=== PATIENT | female | born 1940 | race Caucasian/White ===

== ENCOUNTER 2017-04-25 22:05 | Observation (INO) | payer OTHER ==
[~2017-04-25] VITALS: Ht 162.6 cm; Wt 96.5 kg
[2017-04-25 23:01] LABS: BASOPHIL (%) 0.2 % (0-1); EOSINOPHIL (%) 0.8 % (0-5); EOSINOPHIL COUNT 0.1 K/uL (0-0.3); HEMATOCRIT 26.7 % (36.0-46.0); HEMOGLOBIN 8.8 G/DL (11.9-15.5); IMMATURE GRANULOCYTE (%) 0.7 % (0.0-0.7); LYMPHOCYTE (%) 7.1 % (15-42); LYMPHOCYTE COUNT 0.8 K/uL (1.0-2.8); MCH 33.8 PG (29.0-34.0); MCV 102.7 FL (83-99); MONOCYTE (%) 5.6 % (3-12); MONOCYTE COUNT 0.6 K/uL (0-0.8); NEUTROPHIL (%) 85.6 % (45-76); NEUTROPHIL COUNT 9.1 K/uL (1.8-6.4); PLATELET COUNT 149 K/uL (156-360); RBC DIS.WIDTH-CV 13.5 % (11.8-14.6); RBC DIS.WIDTH-SD 49.9 % (39-53); WHITE BLOOD COUNT 10.6 K/uL (4.1-10.2)
[2017-04-25 23:09] LABS: INTER. NORMALIZED RATIO 1.1
[2017-04-25 23:11] LABS: PTT 25.8 SEC (25-37)
[2017-04-25 23:14] LABS: ALBUMIN 3.3 g/dL (3.2-4.8); CHLORIDE 106 mEq/L (99-109); SODIUM 139 mEq/L (136-147)
[2017-04-25 23:15] LABS: MAGNESIUM 1.6 mg/dL (1.3-2.7)
[2017-04-25 23:16] LABS: GLUCOSE 210 mg/dL (70-99); TOTAL PROTEIN 6.7 g/dL (6.4-8.3)
[2017-04-25 23:18] LABS: TOTAL BILIRUBIN 0.6 mg/dL (0.0-1.0)
[2017-04-25 23:20] LABS: ALKALINE PHOSPHATASE 106 IU/L (3-129); CREATININE 1.9 mg/dL (0.6-1.3); GFR ESTIMATE (CALCULATED) 27 mL/min/
[2017-04-25 23:21] LABS: UREA NITROGEN (BUN) 29 mg/dL (9-23)
[2017-04-25 23:22] LABS: AST (GOT) 35 IU/L (2-34)
[2017-04-25 23:23] LABS: ALT (GPT) 24 IU/L (3-49); CREATINE KINASE 277 IU/L (1-294); TOTAL CK 277 IU/L (1-294)
[2017-04-25 23:29] LABS: CK-MB 4.3 ng/mL (0.0-4.9); CKMB RELATIVE INDEX 1.6 (0.0-3.9)
[2017-04-25 23:30] LABS: TROP-I INTERPRETATION NEGATIVE; TROPONIN-I 0.01 ng/mL (0.0-0.30)
[2017-04-26] VITALS (10 sets, daily range): BP systolic 117–154; BP diastolic 55–77
[2017-04-26 01:59] LABS: APPEARANCE SL.HAZY ((CLEAR)); BILIRUBIN NEGATIVE; BLOOD NEGATIVE; COLOR YELLOW ((YELLOW)); GLUCOSE (STRIP) 50; KETONES NEGATIVE; LEUKOCYTES LARGE; NITRITE NEGATIVE; PROTEIN (STRIP) 30; SPECIFIC GRAVITY 1.018 (1.000-1.030); UROBILINOGEN 0.2 MG/DL (0.2-1.0)
[2017-04-26 02:39] LABS: BACTERIA 2+ /HPF; EPITHELIAL CELLS RARE /HPF; HYALINE CASTS 0-5 /LPF; MUCUS TRACE /LPF; UCUL ADDED? YES; WHITE BLOOD CELLS TNTC /HPF (0-5)
[2017-04-26 03:27] LABS: HEMATOCRIT 23.9 % (36.0-46.0); HEMOGLOBIN 7.8 G/DL (11.9-15.5); MCV 102.6 FL (83-99)
[2017-04-26] MEDS ORDERED: LEVOTHYROXINE137 MCG PO (05:47)
[2017-04-26] MEDS ORDERED: DUONEB 2.5-0.5 M3 ML AEROSOL (05:48)
[2017-04-26] MEDS ORDERED: DONEPEZIL HCL10 MG PO (05:48)
[2017-04-26] MEDS ORDERED: GABAPENTIN300 MG PO (05:48)
[2017-04-26] MEDS ORDERED: OXYCODONE-APAP1 EAC6 PO (05:48)
[2017-04-26] MEDS ORDERED: ASPIR-TRIN325 M1 PO (05:50)
[2017-04-26] MEDS ORDERED: CLOPIDOGREL75 MG PO (05:50)
[2017-04-26 08:09] LABS: SERUM ETHYL ALCOHOL < 10 mg/dL
[2017-04-26 09:05] LABS: HEMOGLOBIN 7.2 G/DL (11.9-15.5); MCH 34.1 PG (29.0-34.0); MCHC 32.7 G/DL (30.0-36.0); MCV 104.3 FL (83-99); PLATELET COUNT 124 K/uL (156-360); RBC DIS.WIDTH-CV 13.7 % (11.8-14.6); RED BLOOD COUNT 2.11 M/uL (3.80-5.20); WHITE BLOOD COUNT 6.7 K/uL (4.1-10.2)
[2017-04-26 09:41] LABS: CHLORIDE 108 MEQ/L (99-109); CREATININE 1.8 MG/DL (0.6-1.3); GFR ESTIMATE (CALCULATED) 29 mL/min/; GLUCOSE 148 mg/dL (70-99); POTASSIUM 4.7 MEQ/L (3.7-5.4); SODIUM 141 MEQ/L (136-147); UREA NITROGEN (BUN) 27 mg/dL (9-23)
[2017-04-26 18:50] LABS: BASOPHIL (%) 0.2 % (0-1); EOSINOPHIL (%) 0.8 % (0-5); EOSINOPHIL COUNT 0.1 K/uL (0-0.3); HEMATOCRIT 31.2 % (36.0-46.0); IMMATURE GRANULOCYTE (%) 0.6 % (0.0-0.7); LYMPHOCYTE (%) 14.1 % (15-42); LYMPHOCYTE COUNT 1.2 K/uL (1.0-2.8); MCH 31.9 PG (29.0-34.0); MCHC 32.4 G/DL (30.0-36.0); MONOCYTE (%) 9.9 % (3-12); MONOCYTE COUNT 0.9 K/uL (0-0.8); NEUTROPHIL (%) 74.4 % (45-76); NEUTROPHIL COUNT 6.4 K/uL (1.8-6.4); PLATELET COUNT 123 K/uL (156-360); RBC DIS.WIDTH-CV 16.9 % (11.8-14.6); RBC DIS.WIDTH-SD 60.3 % (39-53); WHITE BLOOD COUNT 8.6 K/uL (4.1-10.2)
[2017-04-26 18:51] LABS: HEMOGLOBIN 10.1 G/DL (11.9-15.5); MCV 98.4 FL (83-99); RED BLOOD COUNT 3.17 M/uL (3.80-5.20)
[2017-04-27 03:16] VITALS: BP 144/63
[2017-04-27 05:31] LABS: BASOPHIL (%) 0.2 % (0-1); EOSINOPHIL (%) 2.2 % (0-5); EOSINOPHIL COUNT 0.1 K/uL (0-0.3); HEMATOCRIT 28.6 % (36.0-46.0); HEMOGLOBIN 9.5 G/DL (11.9-15.5); IMMATURE GRANULOCYTE (%) 0.8 % (0.0-0.7); LYMPHOCYTE (%) 14.1 % (15-42); LYMPHOCYTE COUNT 0.9 K/uL (1.0-2.8); MCH 32.5 PG (29.0-34.0); MCHC 33.2 G/DL (30.0-36.0); MCV 97.9 FL (83-99); MONOCYTE (%) 11.3 % (3-12); MONOCYTE COUNT 0.7 K/uL (0-0.8); NEUTROPHIL (%) 71.4 % (45-76); NEUTROPHIL COUNT 4.6 K/uL (1.8-6.4); PLATELET COUNT 114 K/uL (156-360); RBC DIS.WIDTH-CV 17.4 % (11.8-14.6); RBC DIS.WIDTH-SD 61.8 % (39-53); RED BLOOD COUNT 2.92 M/uL (3.80-5.20); WHITE BLOOD COUNT 6.4 K/uL (4.1-10.2)
[2017-04-27 05:57] LABS: CHLORIDE 106 MEQ/L (99-109); GFR ESTIMATE (CALCULATED) 26 mL/min/; GLUCOSE 176 mg/dL (70-99); POTASSIUM 4.1 MEQ/L (3.7-5.4); SODIUM 142 MEQ/L (136-147); UREA NITROGEN (BUN) 28 mg/dL (9-23)
[2017-04-27 08:35] VITALS: BP 115/55
[2017-04-27] MEDS ORDERED: NIZORAL 2% CREA15 GM TP (09:04)
[2017-04-27] MEDS ORDERED: CIPRO500 MG PO (09:04)
[2017-04-27] MEDS ORDERED: Ocean Nasal 0.65% BOTH NARES (09:07)
== END 2017-04-27 11:03 | disposition home or self-care (01) ==
LOC: EME → EDBD 22:05 → EDOF 04-26 05:11 → 5WEST 04-26 05:11 → EDOF 04-26 05:11 → ENRESERV 04-26 05:14 → 5WEST 04-26 06:04 → ENPENDDIS 04-27 09:15 → 5WEST 04-27 11:03
PROVIDERS: Emergency Medicine; Hospitalist; Physician Assistant Medical
PROC: 30233N1 Transfusion of Nonautologous Red Blood Cells into Peripheral Vein, Percutaneous Approach (ICD-10-PCS; principal; 2017-04-26)
PROC: 095M8ZZ Destruction of Nasal Septum, Via Natural or Artificial Opening Endoscopic (ICD-10-PCS; 2017-04-26)
DX: R04.0 Epistaxis (principal); D62 Acute posthemorrhagic anemia; D63.1 Anemia in chronic kidney disease; R55 Syncope and collapse; N30.00 Acute cystitis without hematuria; I12.9 Hypertensive chronic kidney disease with stage 1 through stage 4 chronic kidney disease, or unspecified chronic kidney disease; N18.3 Chronic kidney disease, stage 3 (moderate); E11.22 Type 2 diabetes mellitus with diabetic chronic kidney disease; E03.9 Hypothyroidism, unspecified; S00.03XA Contusion of scalp, initial encounter; W19.XXXA Unspecified fall, initial encounter; R29.6 Repeated falls; R26.9 Unspecified abnormalities of gait and mobility; J34.2 Deviated nasal septum; L92.8 Other granulomatous disorders of the skin and subcutaneous tissue; I25.10 Atherosclerotic heart disease of native coronary artery without angina pectoris; I25.2 Old myocardial infarction; Z86.73 Personal history of transient ischemic attack (TIA), and cerebral infarction without residual deficits; I95.9 Hypotension, unspecified; E86.0 Dehydration; E78.5 Hyperlipidemia, unspecified; J44.9 Chronic obstructive pulmonary disease, unspecified; Z85.828 Personal history of other malignant neoplasm of skin; M81.0 Age-related osteoporosis without current pathological fracture; M96.1 Postlaminectomy syndrome, not elsewhere classified; G89.29 Other chronic pain; E21.3 Hyperparathyroidism, unspecified; Z90.710 Acquired absence of both cervix and uterus; Z60.2 Problems related to living alone; Z77.22 Contact with and (suspected) exposure to environmental tobacco smoke (acute) (chronic); Z82.49 Family history of ischemic heart disease and other diseases of the circulatory system; Z83.3 Family history of diabetes mellitus; Z79.82 Long term (current) use of aspirin; Z79.02 Long term (current) use of antithrombotics/antiplatelets; Z79.891 Long term (current) use of opiate analgesic; S51.011A Laceration without foreign body of right elbow, initial encounter; R09.02 Hypoxemia
CPT/HCPCS: 70450; 71010; 80048; 80053; 80306 90; 81003; 82550; 82553; 82948; 83735; 84484; 85014; 85018; 85025; 85027; 85610; 85730; 86850; 86900; 86901; 86920; 87077; 87086; 87186; 87641; 93005; 94640; 94640 76; 99202; 99281; 99285; G0378; G0480; G8978 GP CI; G8979 GP CH; G8987 GO CI; G8988 GO CH; G8989 GO CI; J0696; J1815; J1940; J7030; J7040; P9016

== ENCOUNTER 2017-07-13 20:04 | Inpatient (IN) | payer OTHER ==
[~2017-07-13] VITALS: Ht 162.6 cm; Wt 97.8 kg
[~2017-07-13 20:04] MED LIST: ASPIR-TRIN325 M1 PO; CIPRO500 MG PO; CLOPIDOGREL75 MG PO; DONEPEZIL HCL10 MG PO; DUONEB 2.5-0.5 M3 ML AEROSOL; GABAPENTIN300 MG PO; LEVOTHYROXINE137 MCG PO; NIZORAL 2% CREA15 GM TP; OXYCODONE-APAP1 EAC6 PO; Ocean Nasal 0.65% BOTH NARES
[2017-07-13 21:16] LABS: HEMATOCRIT 38.9 % (36.0-46.0); HEMOGLOBIN 12.9 G/DL (11.9-15.5); MCHC 33.2 G/DL (30.0-36.0); MCV 96.5 FL (83-99); PLATELET COUNT 130 K/uL (156-360); RBC DIS.WIDTH-CV 13.4 % (11.8-14.6); RBC DIS.WIDTH-SD 47.9 % (39-53); RED BLOOD COUNT 4.03 M/uL (3.80-5.20); WHITE BLOOD COUNT 10.5 K/uL (4.1-10.2)
[2017-07-13 21:30] LABS: CHLORIDE 105 mEq/L (99-109); POTASSIUM 4.6 mEq/L (3.7-5.4); SODIUM 138 mEq/L (136-147)
[2017-07-13 21:32] LABS: GLUCOSE 252 mg/dL (70-99)
[2017-07-13 21:36] LABS: GFR ESTIMATE (CALCULATED) 26 mL/min/
[2017-07-13 21:37] LABS: UREA NITROGEN (BUN) 52 mg/dL (9-23)
[2017-07-13 21:50] LABS: TROP-I INTERPRETATION NEGATIVE; TROPONIN-I 0.02 ng/mL (0.0-0.30)
[2017-07-13] MEDS ORDERED: PERCOCET 7.51 TABLET PO (22:44)
[2017-07-13] MEDS ORDERED: NIZORAL 2% CREA15 GM TP (22:46)
[2017-07-13] MEDS ORDERED: MIRALAX17 GM PO (22:47)
[2017-07-13] MEDS ORDERED: SIMVASTATIN40 MG PO (22:47)
[2017-07-13] MEDS ORDERED: ASPIR 8181 M1 PO (22:47)
[2017-07-13] MEDS ORDERED: PROAIR HFA8.5 GM IH (22:47)
[2017-07-13] MEDS ORDERED: OCEAN NASAL 0.645 ML BOTH NARES (22:47)
[2017-07-13] MEDS ORDERED: AMITRIPTYLINE H25 MG PO (22:47)
[2017-07-13] MEDS ORDERED: PROTONIX20 MG PO (22:48)
[2017-07-13] MEDS ORDERED: MOBIC7.5 MG PO (22:48)
[2017-07-13] MEDS ORDERED: ANORO ELLIPTA1 EACH IH (22:48)
[2017-07-13] MEDS ORDERED: HUMULIN 70100 UNIT/3 SC (22:48)
[2017-07-14] VITALS (7 sets, daily range): BP systolic 117–174; BP diastolic 58–82
[2017-07-14 11:39] LABS: TROP-I INTERPRETATION NEGATIVE; TROPONIN-I 0.01 ng/mL (0.0-0.30)
[2017-07-15] VITALS (7 sets, daily range): BP systolic 112–152; BP diastolic 53–70
[2017-07-15 08:54] LABS: HEMATOCRIT 37.1 % (36.0-46.0); HEMOGLOBIN 12.1 G/DL (11.9-15.5); MCH 31.3 PG (29.0-34.0); MCHC 32.6 G/DL (30.0-36.0); MCV 96.1 FL (83-99); PLATELET COUNT 123 K/uL (156-360); RBC DIS.WIDTH-CV 13.3 % (11.8-14.6); RBC DIS.WIDTH-SD 47.3 % (39-53); RED BLOOD COUNT 3.86 M/uL (3.80-5.20); WHITE BLOOD COUNT 11.9 K/uL (4.1-10.2)
[2017-07-15 09:16] LABS: CHLORIDE 101 MEQ/L (99-109); CREATININE 1.7 MG/DL (0.6-1.3); GFR ESTIMATE (CALCULATED) 31 mL/min/; GLUCOSE 303 mg/dL (70-99); POTASSIUM 4.5 MEQ/L (3.7-5.4); SODIUM 135 MEQ/L (136-147); UREA NITROGEN (BUN) 47 mg/dL (9-23)
[2017-07-16 03:58] VITALS: BP 132/62
[2017-07-16 07:29] VITALS: BP 150/71
[2017-07-16 12:21] VITALS: BP 145/65
[2017-07-16] MEDS ORDERED: PREDNISONE20 MG PO (15:31)
[2017-07-16] MEDS ORDERED: DULERA 100 MCG/13 GM IH (15:31)
== END 2017-07-16 18:51 | disposition home or self-care (01) | DRG 192 ==
LOC: EME 20:04 → EDOF 23:24 → 5WEST 23:24 → ENRESERV 23:25 → 5WEST 07-14 00:45
PROVIDERS: Hospitalist
DX: J44.1 Chronic obstructive pulmonary disease with (acute) exacerbation (principal); J44.0 Chronic obstructive pulmonary disease with (acute) lower respiratory infection; J20.9 Acute bronchitis, unspecified; E03.9 Hypothyroidism, unspecified; E11.40 Type 2 diabetes mellitus with diabetic neuropathy, unspecified; E11.65 Type 2 diabetes mellitus with hyperglycemia; G89.4 Chronic pain syndrome; I13.10 Hypertensive heart and chronic kidney disease without heart failure, with stage 1 through stage 4 chronic kidney disease, or unspecified chronic kidney disease; N18.3 Chronic kidney disease, stage 3 (moderate); E11.22 Type 2 diabetes mellitus with diabetic chronic kidney disease; D69.6 Thrombocytopenia, unspecified; I25.10 Atherosclerotic heart disease of native coronary artery without angina pectoris; K21.9 Gastro-esophageal reflux disease without esophagitis; M81.0 Age-related osteoporosis without current pathological fracture; M96.1 Postlaminectomy syndrome, not elsewhere classified; R29.6 Repeated falls; E21.3 Hyperparathyroidism, unspecified; E78.5 Hyperlipidemia, unspecified; F41.9 Anxiety disorder, unspecified; Z86.73 Personal history of transient ischemic attack (TIA), and cerebral infarction without residual deficits; R00.0 Tachycardia, unspecified; R26.9 Unspecified abnormalities of gait and mobility; M62.81 Muscle weakness (generalized); G89.29 Other chronic pain; F32.9 Major depressive disorder, single episode, unspecified; I25.2 Old myocardial infarction; E66.9 Obesity, unspecified; Z68.35 Body mass index [BMI] 35.0-35.9, adult; Z77.22 Contact with and (suspected) exposure to environmental tobacco smoke (acute) (chronic); Z79.4 Long term (current) use of insulin; Z79.82 Long term (current) use of aspirin; Z82.49 Family history of ischemic heart disease and other diseases of the circulatory system; Z83.3 Family history of diabetes mellitus; Z85.828 Personal history of other malignant neoplasm of skin
CPT/HCPCS: 71046; 71250; 78582; 80048; 82948; 83880; 84484; 85027; 85379; 93005; 93306; 93970; 94640; 94640 76; 94760; 99202; 99281; 99285; A9539; A9540; G0378; J0360; J1100; J1644; J1815; J7030; J7512; J7644

== ENCOUNTER 2017-07-21 23:03 | Inpatient (IN) | payer OTHER ==
[~2017-07-21] VITALS: Ht 162.6 cm; Wt 95.7 kg
[~2017-07-21 23:03] MED LIST changes: +AMITRIPTYLINE H25 MG PO; +ANORO ELLIPTA1 EACH IH; +ASPIR 8181 M1 PO; +DULERA 100 MCG/13 GM IH; +HUMULIN 70100 UNIT/3 SC; +MIRALAX17 GM PO; +MOBIC7.5 MG PO; +OCEAN NASAL 0.645 ML BOTH NARES; +PERCOCET 7.51 TABLET PO; +PREDNISONE20 MG PO; +PROAIR HFA8.5 GM IH; +PROTONIX20 MG PO; +SIMVASTATIN40 MG PO
[2017-07-21 23:56] LABS: HEMATOCRIT 39.4 % (36.0-46.0); HEMOGLOBIN 13.1 G/DL (11.9-15.5); MCH 32.3 PG (29.0-34.0); MCHC 33.2 G/DL (30.0-36.0); PLATELET COUNT 128 K/uL (156-360); RBC DIS.WIDTH-CV 13.6 % (11.8-14.6); RBC DIS.WIDTH-SD 48.4 % (39-53); RED BLOOD COUNT 4.06 M/uL (3.80-5.20); WHITE BLOOD COUNT 8.6 K/uL (4.1-10.2)
[2017-07-22 00:04] LABS: CHLORIDE 107 mEq/L (99-109); POTASSIUM 4.3 mEq/L (3.7-5.4); SODIUM 141 mEq/L (136-147)
[2017-07-22 00:05] LABS: GLUCOSE 205 mg/dL (70-99)
[2017-07-22 00:09] LABS: CREATININE 1.9 mg/dL (0.6-1.3); GFR ESTIMATE (CALCULATED) 27 mL/min/; PTT 22.7 SEC (25-37)
[2017-07-22 00:10] LABS: UREA NITROGEN (BUN) 38 mg/dL (9-23)
[2017-07-22 00:18] LABS: TROP-I INTERPRETATION NEGATIVE; TROPONIN-I 0.03 ng/mL (0.0-0.30)
[2017-07-22 00:46] LABS: APPEARANCE CLOUDY ((CLEAR)); BILIRUBIN NEGATIVE; BLOOD MODERATE; COLOR YELLOW ((YELLOW)); GLUCOSE (STRIP) NEGATIVE; KETONES NEGATIVE; LEUKOCYTES LARGE; NITRITE POSITIVE; PROTEIN (STRIP) 30; SPECIFIC GRAVITY 1.019 (1.000-1.030); UROBILINOGEN 0.2 MG/DL (0.2-1.0)
[2017-07-22 01:34] LABS: EPITHELIAL CELLS 1+ /HPF
[2017-07-22 01:35] LABS: MUCUS 1+ /LPF; UCUL ADDED? YES; WHITE BLOOD CELLS 40-50 /HPF (0-5)
[2017-07-22 01:36] LABS: AMORPHOUS URATES CRYSTALS 1+; BACTERIA 3+ /HPF
[2017-07-22 10:57] LABS: TROP-I INTERPRETATION NEGATIVE; TROPONIN-I 0.02 ng/mL (0.0-0.30)
[2017-07-22 12:12] VITALS: BP 134/75
[2017-07-22 13:00] LABS: GLUCOSE 673 mg/dL (70-99)
[2017-07-22] MEDS ORDERED: MULTIVITAMIN1 EAC2 PO (13:47)
[2017-07-22] MEDS ORDERED: IRON325 M1 PO (13:48)
[2017-07-22 16:10] LABS: TROP-I INTERPRETATION NEGATIVE; TROPONIN-I 0.02 ng/mL (0.0-0.30)
[2017-07-22 16:37] VITALS: BP 135/66
[2017-07-22 17:01] LABS: CHLORIDE 99 MEQ/L (99-109)
[2017-07-22 17:03] LABS: POTASSIUM 5.2 MEQ/L (3.7-5.4); SODIUM 131 MEQ/L (136-147)
[2017-07-22 17:18] LABS: CREATININE 2.2 MG/DL (0.6-1.3); GFR ESTIMATE (CALCULATED) 23 mL/min/; UREA NITROGEN (BUN) 49 mg/dL (9-23)
[2017-07-22 17:19] LABS: GLUCOSE 583 mg/dL (70-99)
[2017-07-22 18:24] LABS: TROP-I INTERPRETATION NEGATIVE; TROPONIN-I 0.03 ng/mL (0.0-0.30)
[2017-07-22 18:29] LABS: CHLORIDE 98 MEQ/L (99-109); POTASSIUM 5.3 MEQ/L (3.7-5.4); SODIUM 131 MEQ/L (136-147)
[2017-07-22 18:30] LABS: BASE EXCESS -4.4 mEq/L (-3 to +3); BICARBONATE 20.1 mEq/L (22-26); CARBOXY HGB 1.6 % (0-5); COMMENTS - BLOOD GASES A+C+; FI02 21 %; METHEMOGLOBIN 0.8 % (0-1.5); PCO2 34 mm Hg (35-45); PO2 81 mm Hg (80-100); SITE RR; pH 7.38 (7.35-7.45)
[2017-07-22 18:46] LABS: CREATININE 2.2 MG/DL (0.6-1.3); GFR ESTIMATE (CALCULATED) 23 mL/min/; GLUCOSE 552 mg/dL (70-99); UREA NITROGEN (BUN) 48 mg/dL (9-23)
[2017-07-22 19:26] VITALS: BP 134/62
[2017-07-22 23:24] VITALS: BP 97/61
[2017-07-23 02:40] VITALS: BP 93/57
[2017-07-23 07:18] LABS: BASOPHIL (%) 0.1 % (0-1); EOSINOPHIL (%) 0.1 % (0-5); HEMATOCRIT 32.8 % (36.0-46.0); IMMATURE GRANULOCYTE (%) 0.8 % (0.0-0.7); LYMPHOCYTE COUNT 0.3 K/uL (1.0-2.8); MCH 32.5 PG (29.0-34.0); MCHC 33.5 G/DL (30.0-36.0); MONOCYTE (%) 2.5 % (3-12); MONOCYTE COUNT 0.4 K/uL (0-0.8); NEUTROPHIL (%) 94.5 % (45-76); NEUTROPHIL COUNT 13.5 K/uL (1.8-6.4); PLATELET COUNT 92 K/uL (156-360); RBC DIS.WIDTH-CV 13.4 % (11.8-14.6); RBC DIS.WIDTH-SD 47.4 % (39-53); RED BLOOD COUNT 3.38 M/uL (3.80-5.20); WHITE BLOOD COUNT 14.3 K/uL (4.1-10.2)
[2017-07-23 07:39] LABS: ALKALINE PHOSPHATASE 54 IU/L (3-129); ALT (GPT) 23 IU/L (3-49); AST (GOT) 17 IU/L (2-34); CHLORIDE 104 MEQ/L (99-109); CREATININE 1.8 MG/DL (0.6-1.3); GFR ESTIMATE (CALCULATED) 29 mL/min/; POTASSIUM 4.6 MEQ/L (3.7-5.4); SODIUM 136 MEQ/L (136-147); TOTAL BILIRUBIN 0.4 MG/DL (0.0-1.0); TOTAL PROTEIN 5.3 G/DL (6.4-8.3); UREA NITROGEN (BUN) 48 mg/dL (9-23)
[2017-07-23 07:40] LABS: GLUCOSE 192 mg/dL (70-99)
[2017-07-23 08:29] VITALS: BP 135/66; BP 156/68
[2017-07-23 11:52] LABS: HEMOGLOBIN A1c (GLYCOHEMOGLOB) 8.8 % (Below 5.7)
[2017-07-23 12:00] VITALS: BP 137/62
[2017-07-23 15:52] VITALS: BP 140/66
[2017-07-23 19:15] VITALS: BP 170/80
[2017-07-24] VITALS (7 sets, daily range): BP systolic 109–155; BP diastolic 62–92
[2017-07-24 06:12] LABS: BASOPHIL (%) 0.1 % (0-1); EOSINOPHIL (%) 0 % (0-5); HEMATOCRIT 32.7 % (36.0-46.0); HEMOGLOBIN 10.7 G/DL (11.9-15.5); IMMATURE GRANULOCYTE (%) 0.6 % (0.0-0.7); LYMPHOCYTE (%) 1.7 % (15-42); LYMPHOCYTE COUNT 0.2 K/uL (1.0-2.8); MCH 32.3 PG (29.0-34.0); MCHC 32.7 G/DL (30.0-36.0); MCV 98.8 FL (83-99); MONOCYTE (%) 2.6 % (3-12); MONOCYTE COUNT 0.3 K/uL (0-0.8); NEUTROPHIL COUNT 12.6 K/uL (1.8-6.4); PLATELET COUNT 93 K/uL (156-360); RBC DIS.WIDTH-CV 13.7 % (11.8-14.6); RBC DIS.WIDTH-SD 49.6 % (39-53); RED BLOOD COUNT 3.31 M/uL (3.80-5.20); WHITE BLOOD COUNT 13.3 K/uL (4.1-10.2)
[2017-07-24 06:35] LABS: ALBUMIN 2.7 G/DL (3.2-4.8); ALKALINE PHOSPHATASE 48 IU/L (3-129); ALT (GPT) 25 IU/L (3-49); CHLORIDE 110 MEQ/L (99-109); CREATININE 1.7 MG/DL (0.6-1.3); GFR ESTIMATE (CALCULATED) 31 mL/min/; GLUCOSE 160 mg/dL (70-99); POTASSIUM 4.9 MEQ/L (3.7-5.4); SODIUM 138 MEQ/L (136-147); TOTAL PROTEIN 4.9 G/DL (6.4-8.3); UREA NITROGEN (BUN) 46 mg/dL (9-23)
[2017-07-24 06:47] LABS: AST (GOT) 26 IU/L (2-34); TOTAL BILIRUBIN 0.3 MG/DL (0.0-1.0)
[2017-07-24 12:18] LABS: APPEARANCE CLEAR ((CLEAR)); BILIRUBIN NEGATIVE; BLOOD MODERATE; COLOR STRAW ((YELLOW)); GLUCOSE (STRIP) >=500; KETONES NEGATIVE; LEUKOCYTES NEGATIVE; NITRITE NEGATIVE; PROTEIN (STRIP) NEGATIVE; SPECIFIC GRAVITY 1.013 (1.000-1.030); UROBILINOGEN 0.2 MG/DL (0.2-1.0)
[2017-07-24 12:34] LABS: BACTERIA RARE /HPF; EPITHELIAL CELLS NONE SEEN /HPF; HYALINE CASTS 0-5 /LPF; MUCUS TRACE /LPF; RED BLOOD CELLS 0-5 /HPF (0-5); WHITE BLOOD CELLS 0-5 /HPF (0-5)
[2017-07-25 03:21] VITALS: BP 170/80
[2017-07-25 06:14] LABS: BASOPHIL (%) 0.1 % (0-1); EOSINOPHIL (%) 0 % (0-5); HEMATOCRIT 32.1 % (36.0-46.0); HEMOGLOBIN 10.4 G/DL (11.9-15.5); IMMATURE GRANULOCYTE (%) 1.1 % (0.0-0.7); LYMPHOCYTE (%) 2.9 % (15-42); LYMPHOCYTE COUNT 0.3 K/uL (1.0-2.8); MCH 31.5 PG (29.0-34.0); MCHC 32.4 G/DL (30.0-36.0); MCV 97.3 FL (83-99); MONOCYTE COUNT 0.5 K/uL (0-0.8); NEUTROPHIL (%) 90.9 % (45-76); NEUTROPHIL COUNT 9.3 K/uL (1.8-6.4); PLATELET COUNT 96 K/uL (156-360); RBC DIS.WIDTH-CV 13.9 % (11.8-14.6); RBC DIS.WIDTH-SD 49.5 % (39-53); WHITE BLOOD COUNT 10.2 K/uL (4.1-10.2)
[2017-07-25 06:38] LABS: ALBUMIN 2.9 G/DL (3.2-4.8); ALKALINE PHOSPHATASE 50 IU/L (3-129); ALT (GPT) 31 IU/L (3-49); AST (GOT) 40 IU/L (2-34); CHLORIDE 109 MEQ/L (99-109); CREATININE 1.7 MG/DL (0.6-1.3); GFR ESTIMATE (CALCULATED) 31 mL/min/; GLUCOSE 123 mg/dL (70-99); POTASSIUM 4.7 MEQ/L (3.7-5.4); SODIUM 137 MEQ/L (136-147); TOTAL BILIRUBIN 0.3 MG/DL (0.0-1.0); TOTAL PROTEIN 5.3 G/DL (6.4-8.3); UREA NITROGEN (BUN) 42 mg/dL (9-23)
[2017-07-25 07:30] VITALS: BP 158/75
[2017-07-25 11:21] VITALS: BP 147/73
[2017-07-25 15:51] VITALS: BP 181/77
[2017-07-25 19:41] VITALS: BP 169/80
[2017-07-25 23:36] VITALS: BP 145/63
[2017-07-26 03:51] VITALS: BP 140/69
[2017-07-26 06:28] LABS: BASOPHIL (%) 0.3 % (0-1); EOSINOPHIL (%) 0.6 % (0-5); HEMATOCRIT 32.9 % (36.0-46.0); HEMOGLOBIN 10.9 G/DL (11.9-15.5); IMMATURE GRANULOCYTE (%) 1.8 % (0.0-0.7); LYMPHOCYTE (%) 9.9 % (15-42); LYMPHOCYTE COUNT 0.7 K/uL (1.0-2.8); MCH 32.5 PG (29.0-34.0); MCHC 33.1 G/DL (30.0-36.0); MCV 98.2 FL (83-99); MONOCYTE (%) 10.6 % (3-12); MONOCYTE COUNT 0.8 K/uL (0-0.8); NEUTROPHIL (%) 76.8 % (45-76); NEUTROPHIL COUNT 5.6 K/uL (1.8-6.4); PLATELET COUNT 86 K/uL (156-360); RBC DIS.WIDTH-CV 14.3 % (11.8-14.6); RBC DIS.WIDTH-SD 51.8 % (39-53); RED BLOOD COUNT 3.35 M/uL (3.80-5.20); WHITE BLOOD COUNT 7.3 K/uL (4.1-10.2)
[2017-07-26 07:32] LABS: CHLORIDE 108 MEQ/L (99-109); CREATININE 1.6 MG/DL (0.6-1.3); GFR ESTIMATE (CALCULATED) 33 mL/min/; GLUCOSE 96 mg/dL (70-99); POTASSIUM 4.5 MEQ/L (3.7-5.4); SODIUM 138 MEQ/L (136-147); UREA NITROGEN (BUN) 38 mg/dL (9-23)
[2017-07-26 07:40] VITALS: BP 141/77
[2017-07-26 11:41] VITALS: BP 161/67
[2017-07-26 16:00] VITALS: BP 138/65
[2017-07-26 18:47] VITALS: BP 121/66; BP 121/71
[2017-07-26 23:18] VITALS: BP 151/84
[2017-07-27 03:24] VITALS: BP 139/66
[2017-07-27 06:41] LABS: BASOPHIL (%) 0.5 % (0-1); EOSINOPHIL (%) 0.6 % (0-5); HEMATOCRIT 31.7 % (36.0-46.0); HEMOGLOBIN 10.5 G/DL (11.9-15.5); IMMATURE GRANULOCYTE (%) 3.1 % (0.0-0.7); LYMPHOCYTE (%) 15.3 % (15-42); LYMPHOCYTE COUNT 0.9 K/uL (1.0-2.8); MCH 32.6 PG (29.0-34.0); MCHC 33.1 G/DL (30.0-36.0); MCV 98.4 FL (83-99); MONOCYTE (%) 11.2 % (3-12); MONOCYTE COUNT 0.7 K/uL (0-0.8); NEUTROPHIL (%) 69.3 % (45-76); NEUTROPHIL COUNT 4.3 K/uL (1.8-6.4); PLATELET COUNT 84 K/uL (156-360); RBC DIS.WIDTH-CV 14.2 % (11.8-14.6); RBC DIS.WIDTH-SD 50.6 % (39-53); RED BLOOD COUNT 3.22 M/uL (3.80-5.20); WHITE BLOOD COUNT 6.2 K/uL (4.1-10.2)
[2017-07-27 06:58] LABS: CHLORIDE 106 MEQ/L (99-109); CREATININE 1.8 MG/DL (0.6-1.3); GFR ESTIMATE (CALCULATED) 29 mL/min/; GLUCOSE 98 mg/dL (70-99); POTASSIUM 4.4 MEQ/L (3.7-5.4); SODIUM 138 MEQ/L (136-147); UREA NITROGEN (BUN) 45 mg/dL (9-23)
[2017-07-27 10:02] VITALS: BP 143/66
[2017-07-27 11:26] VITALS: BP 137/60
[2017-07-27 15:50] VITALS: BP 136/68
[2017-07-27 19:46] VITALS: BP 148/66
[2017-07-27 23:54] VITALS: BP 136/60
[2017-07-28 04:26] VITALS: BP 167/72
[2017-07-28 07:20] VITALS: BP 124/75
[2017-07-28] MEDS ORDERED: LEVEMIR100 UNIT/2 SC (11:29)
[2017-07-28] MEDS ORDERED: DOXYCYCLINE HY100 M3 PO (11:43)
[2017-07-28] MEDS ORDERED: BENZONATATE100 MG PO (11:48)
[2017-07-28] MEDS ORDERED: DULERA 100 MCG/13 GM IH (11:56)
[2017-07-28] MEDS ORDERED: NOVOLOG 10100 UNITS/ SC (11:56)
[2017-07-28] MEDS ORDERED: PREDNISONE20 MG PO (11:56)
[2017-08-01] MEDS ORDERED: LANTUS 3 M100 UNITS1 SC (14:30)
== END 2017-07-28 14:42 | disposition home health service (06) | DRG 191 ==
LOC: EME 23:03 → EDOF 07-22 07:43 → 5EAST 07-22 07:43 → ENRESERV 07-22 07:44 → EDOF 07-22 07:47 → ENRESERV 07-22 09:41 → 5EAST 07-22 10:25 → ENRESERV 07-22 17:30 → CANRESERV 07-22 17:30 → 5EAST 07-22 17:31
PROVIDERS: Emergency Medicine; Hospitalist
DX: J44.1 Chronic obstructive pulmonary disease with (acute) exacerbation (principal); N30.00 Acute cystitis without hematuria; K21.9 Gastro-esophageal reflux disease without esophagitis; N18.3 Chronic kidney disease, stage 3 (moderate); D69.6 Thrombocytopenia, unspecified; E03.9 Hypothyroidism, unspecified; E11.22 Type 2 diabetes mellitus with diabetic chronic kidney disease; E11.40 Type 2 diabetes mellitus with diabetic neuropathy, unspecified; E21.3 Hyperparathyroidism, unspecified; E78.5 Hyperlipidemia, unspecified; G89.4 Chronic pain syndrome; I13.10 Hypertensive heart and chronic kidney disease without heart failure, with stage 1 through stage 4 chronic kidney disease, or unspecified chronic kidney disease; I25.10 Atherosclerotic heart disease of native coronary artery without angina pectoris; M81.0 Age-related osteoporosis without current pathological fracture; J98.01 Acute bronchospasm; Z77.22 Contact with and (suspected) exposure to environmental tobacco smoke (acute) (chronic); I25.2 Old myocardial infarction; Z90.710 Acquired absence of both cervix and uterus; Z86.73 Personal history of transient ischemic attack (TIA), and cerebral infarction without residual deficits; Z90.49 Acquired absence of other specified parts of digestive tract; Z85.828 Personal history of other malignant neoplasm of skin; Z79.51 Long term (current) use of inhaled steroids; Z82.49 Family history of ischemic heart disease and other diseases of the circulatory system
CPT/HCPCS: 36600; 71046; 80048; 80048 91; 80053; 81003; 82010; 82803; 82948; 83036; 83605; 83880; 84484; 84999; 85025; 85027; 85610; 85730; 87040; 87077; 87086; 87186; 87449; 87502; 93005; 94640; 94640 76; 94644; 94760; 99202; 99281; 99285; J0456; J0692; J1644; J1815; J2920; J2930; J3370; J7030; J7050; J7512

== ENCOUNTER 2017-08-02 06:58 | Day surgery (SDC) | payer OTHER ==
[~2017-08-02] VITALS: Ht 162.6 cm; Wt 95.7 kg
[~2017-08-02 06:58] MED LIST changes: +BENZONATATE100 MG PO; +DOXYCYCLINE HY100 M3 PO; +IRON325 M1 PO; +LANTUS 3 M100 UNITS1 SC; +LEVEMIR100 UNIT/2 SC; +MULTIVITAMIN1 EAC2 PO; +NOVOLOG 10100 UNITS/ SC
[2017-08-02 11:57] LABS: CHLORIDE 109 MEQ/L (99-109); CREATININE 1.4 MG/DL (0.6-1.3); GFR ESTIMATE (CALCULATED) 39 mL/min/; GLUCOSE 59 mg/dL (70-99); POTASSIUM 3.8 MEQ/L (3.7-5.4); SODIUM 139 MEQ/L (136-147); UREA NITROGEN (BUN) 38 mg/dL (9-23)
[2017-08-02] MEDS ORDERED: PULMICORT FLE180 MCG IH (15:04)
== END 2017-08-02 15:58 | disposition home or self-care (01) ==
LOC: CATH 06:58
PROVIDERS: Internal Medicine Cardiovascular Disease
DX: I25.10 Atherosclerotic heart disease of native coronary artery without angina pectoris (principal); R06.02 Shortness of breath; J44.9 Chronic obstructive pulmonary disease, unspecified; E78.5 Hyperlipidemia, unspecified; E11.42 Type 2 diabetes mellitus with diabetic polyneuropathy; Z79.4 Long term (current) use of insulin; Z86.73 Personal history of transient ischemic attack (TIA), and cerebral infarction without residual deficits; I12.9 Hypertensive chronic kidney disease with stage 1 through stage 4 chronic kidney disease, or unspecified chronic kidney disease; N18.9 Chronic kidney disease, unspecified; E11.22 Type 2 diabetes mellitus with diabetic chronic kidney disease; M81.0 Age-related osteoporosis without current pathological fracture; Z86.19 Personal history of other infectious and parasitic diseases; G89.4 Chronic pain syndrome; R26.89 Other abnormalities of gait and mobility
CPT/HCPCS: 80048; 82948; C1769; C1887; J0360; J1644; J2250; J7040

== ENCOUNTER 2017-08-11 09:39 | Inpatient (IN) | payer OTHER ==
[~2017-08-11] VITALS: Ht 162.6 cm; Wt 82.7 kg
[~2017-08-11 09:39] MED LIST changes: +PULMICORT FLE180 MCG IH
[2017-08-11 10:48] LABS: HEMATOCRIT 35.4 % (36.0-46.0); MCH 33.2 PG (29.0-34.0); MCHC 33.9 G/DL (30.0-36.0); MCV 98.1 FL (83-99); PLATELET COUNT 96 K/uL (156-360); RBC DIS.WIDTH-CV 13.6 % (11.8-14.6); RBC DIS.WIDTH-SD 49.1 % (39-53); RED BLOOD COUNT 3.61 M/uL (3.80-5.20); WHITE BLOOD COUNT 8.1 K/uL (4.1-10.2)
[2017-08-11 11:00] LABS: CHLORIDE 103 mEq/L (99-109); POTASSIUM 4.9 mEq/L (3.7-5.4); SODIUM 140 mEq/L (136-147)
[2017-08-11 11:02] LABS: GLUCOSE 304 mg/dL (70-99)
[2017-08-11 11:05] LABS: CREATININE 1.6 mg/dL (0.6-1.3); GFR ESTIMATE (CALCULATED) 33 mL/min/
[2017-08-11 11:06] LABS: UREA NITROGEN (BUN) 28 mg/dL (9-23)
[2017-08-11 11:08] LABS: CREATINE KINASE 104 IU/L (1-294); TOTAL CK 104 IU/L (1-294)
[2017-08-11 11:14] LABS: TROP-I INTERPRETATION NEGATIVE; TROPONIN-I 0.25 ng/mL (0.0-0.30)
[2017-08-11 11:15] LABS: CK-MB 9.2 ng/mL (0.0-4.9); CKMB RELATIVE INDEX 8.8 (0.0-3.9)
[2017-08-11 12:52] LABS: PTT 18.3 SEC (25-37)
[2017-08-11 13:08] LABS: APPEARANCE SL.HAZY ((CLEAR)); BILIRUBIN NEGATIVE; BLOOD SMALL; COLOR YELLOW ((YELLOW)); GLUCOSE (STRIP) >=500; KETONES 5; LEUKOCYTES TRACE; NITRITE NEGATIVE; PROTEIN (STRIP) 100; SPECIFIC GRAVITY 1.017 (1.000-1.030); UROBILINOGEN 0.2 MG/DL (0.2-1.0)
[2017-08-11 13:16] LABS: BACTERIA 1+ /HPF; EPITHELIAL CELLS NONE SEEN /HPF; MUCUS NONE SEEN /LPF; RED BLOOD CELLS TNTC /HPF (0-5); WHITE BLOOD CELLS 20-30 /HPF (0-5)
[2017-08-11 16:08] VITALS: BP 111/56
[2017-08-11] MEDS ORDERED: TRELEGY ELLIPT1 EACH IH (17:26)
[2017-08-11 18:17] LABS: TROPONIN-I 0.73 ng/mL (0.0-0.30)
[2017-08-11 18:18] LABS: TROP-I INTERPRETATION POSITIVE
[2017-08-11 19:08] VITALS: BP 150/65; BP 171/77
[2017-08-11 20:27] VITALS: BP 136/67
[2017-08-11 23:35] VITALS: BP 113/54
[2017-08-12 03:21] VITALS: BP 125/58
[2017-08-12 03:27] LABS: HEMATOCRIT 29.4 % (36.0-46.0); MCH 32.8 PG (29.0-34.0); MCV 99.3 FL (83-99); PLATELET COUNT 89 K/uL (156-360); RBC DIS.WIDTH-CV 14.5 % (11.8-14.6); RBC DIS.WIDTH-SD 51.9 % (39-53); RED BLOOD COUNT 2.96 M/uL (3.80-5.20)
[2017-08-12 03:28] LABS: HEMOGLOBIN 9.7 G/DL (11.9-15.5)
[2017-08-12 03:34] LABS: CHLORIDE 108 mEq/L (99-109); POTASSIUM 4.3 mEq/L (3.7-5.4); SODIUM 142 mEq/L (136-147)
[2017-08-12 03:36] LABS: GLUCOSE 222 mg/dL (70-99)
[2017-08-12 03:40] LABS: CREATININE 1.8 mg/dL (0.6-1.3); GFR ESTIMATE (CALCULATED) 29 mL/min/
[2017-08-12 03:41] LABS: UREA NITROGEN (BUN) 31 mg/dL (9-23)
[2017-08-12 03:44] LABS: TROP-I INTERPRETATION INDETERMINATE; TROPONIN-I 0.57 ng/mL (0.0-0.30)
[2017-08-12 08:50] VITALS: BP 118/62
[2017-08-12] MEDS ORDERED: ATIVAN0.5 MG PO (11:24)
[2017-08-12] MEDS ORDERED: LANTUS 3 M100 UNITS1 SC (11:27)
[2017-08-12] MEDS ORDERED: HUMALOG100 UNIT/2 SC (11:28)
[2017-08-12] MEDS ORDERED: TRELEGY ELLIPT1 EACH IH (11:28)
[2017-08-12 12:11] VITALS: BP 106/78
[2017-08-12 16:38] VITALS: BP 141/61
[2017-08-12 20:14] VITALS: BP 146/74
[2017-08-12 23:52] VITALS: BP 151/64
[2017-08-13 05:21] VITALS: BP 124/58
[2017-08-13 08:30] VITALS: BP 134/75
[2017-08-13 09:19] LABS: HEMATOCRIT 29.9 % (36.0-46.0); HEMOGLOBIN 9.9 G/DL (11.9-15.5); MCH 33.2 PG (29.0-34.0); MCHC 33.1 G/DL (30.0-36.0); MCV 100.3 FL (83-99); PLATELET COUNT 78 K/uL (156-360); RBC DIS.WIDTH-CV 14.5 % (11.8-14.6); RBC DIS.WIDTH-SD 53.2 % (39-53); RED BLOOD COUNT 2.98 M/uL (3.80-5.20); WHITE BLOOD COUNT 3.3 K/uL (4.1-10.2)
[2017-08-13 09:41] LABS: CHLORIDE 106 MEQ/L (99-109); CREATININE 1.6 MG/DL (0.6-1.3); GFR ESTIMATE (CALCULATED) 33 mL/min/; GLUCOSE 186 mg/dL (70-99); SODIUM 136 MEQ/L (136-147); UREA NITROGEN (BUN) 23 mg/dL (9-23)
[2017-08-13 12:08] VITALS: BP 148/67
[2017-08-13 15:50] VITALS: BP 146/67
[2017-08-13 19:05] VITALS: BP 158/69
[2017-08-13 23:40] VITALS: BP 138/65
[2017-08-14 03:35] VITALS: BP 130/62
[2017-08-14 06:14] LABS: BASOPHIL (%) 0.3 % (0-1); EOSINOPHIL (%) 1.5 % (0-5); EOSINOPHIL COUNT 0.1 K/uL (0-0.3); HEMATOCRIT 27.7 % (36.0-46.0); HEMOGLOBIN 9.1 G/DL (11.9-15.5); IMMATURE GRANULOCYTE (%) 2.4 % (0.0-0.7); LYMPHOCYTE COUNT 0.6 K/uL (1.0-2.8); MCH 32.7 PG (29.0-34.0); MCHC 32.9 G/DL (30.0-36.0); MCV 99.6 FL (83-99); MONOCYTE (%) 14.9 % (3-12); MONOCYTE COUNT 0.5 K/uL (0-0.8); NEUTROPHIL (%) 61.9 % (45-76); NEUTROPHIL COUNT 2.1 K/uL (1.8-6.4); PLATELET COUNT 70 K/uL (156-360); RBC DIS.WIDTH-CV 14.5 % (11.8-14.6); RBC DIS.WIDTH-SD 52.8 % (39-53); RED BLOOD COUNT 2.78 M/uL (3.80-5.20); WHITE BLOOD COUNT 3.4 K/uL (4.1-10.2)
[2017-08-14 06:40] LABS: CHLORIDE 108 MEQ/L (99-109); CREATININE 1.8 MG/DL (0.6-1.3); GFR ESTIMATE (CALCULATED) 29 mL/min/; GLUCOSE 153 mg/dL (70-99); POTASSIUM 3.9 MEQ/L (3.7-5.4); SODIUM 138 MEQ/L (136-147); UREA NITROGEN (BUN) 22 mg/dL (9-23)
[2017-08-14 08:11] VITALS: BP 144/70
[2017-08-14 11:37] VITALS: BP 151/64
[2017-08-14 15:59] VITALS: BP 140/68
[2017-08-14 20:21] VITALS: BP 171/79
[2017-08-14 22:40] LABS: GLUCOSE 426 mg/dL (70-99)
[2017-08-14 23:10] VITALS: BP 173/79
[2017-08-15 03:30] VITALS: BP 173/74
[2017-08-15 06:11] LABS: HEMATOCRIT 29.1 % (36.0-46.0); HEMOGLOBIN 9.9 G/DL (11.9-15.5); MCH 32.6 PG (29.0-34.0); MCV 95.7 FL (83-99); PLATELET COUNT 78 K/uL (156-360); RBC DIS.WIDTH-CV 13.5 % (11.8-14.6); RBC DIS.WIDTH-SD 46.9 % (39-53); RED BLOOD COUNT 3.04 M/uL (3.80-5.20); WHITE BLOOD COUNT 5.9 K/uL (4.1-10.2)
[2017-08-15 06:31] LABS: CHLORIDE 107 MEQ/L (99-109); CREATININE 1.6 MG/DL (0.6-1.3); GFR ESTIMATE (CALCULATED) 33 mL/min/; GLUCOSE 285 mg/dL (70-99); POTASSIUM 4.3 MEQ/L (3.7-5.4); SODIUM 135 MEQ/L (136-147); UREA NITROGEN (BUN) 27 mg/dL (9-23)
[2017-08-15 09:00] VITALS: BP 144/66
[2017-08-15] MEDS ORDERED: FERROUS SULFAT325 MG PO (12:40)
[2017-08-15] MEDS ORDERED: LOPRESSOR25 MG PO (12:40)
[2017-08-15] MEDS ORDERED: PREDNISONE20 MG PO (12:40)
[2017-08-15] MEDS ORDERED: LANTUS 3 M100 UNITS1 SC (12:40)
== END 2017-08-15 14:50 | disposition home health service (06) | DRG 192 ==
LOC: EME 09:39 → EDOF 13:57 → 2EAST 13:57 → ENRESERV 14:00 → EDOF 14:03 → ENRESERV 14:34 → 2EAST 16:27 → ENRESERV 18:35 → 2EAST 18:38 → ENRESERV 21:40 → 4EAST 23:33 → ENRESERV 08-13 08:53 → 2EAST 08-13 11:32
PROVIDERS: Emergency Medicine; Hospitalist
DX: J44.1 Chronic obstructive pulmonary disease with (acute) exacerbation (principal); E11.649 Type 2 diabetes mellitus with hypoglycemia without coma; R55 Syncope and collapse; E11.22 Type 2 diabetes mellitus with diabetic chronic kidney disease; I25.10 Atherosclerotic heart disease of native coronary artery without angina pectoris; I13.10 Hypertensive heart and chronic kidney disease without heart failure, with stage 1 through stage 4 chronic kidney disease, or unspecified chronic kidney disease; N18.3 Chronic kidney disease, stage 3 (moderate); D69.6 Thrombocytopenia, unspecified; E78.5 Hyperlipidemia, unspecified; E03.9 Hypothyroidism, unspecified; M81.0 Age-related osteoporosis without current pathological fracture; D64.9 Anemia, unspecified; K21.9 Gastro-esophageal reflux disease without esophagitis; R29.6 Repeated falls; R74.8 Abnormal levels of other serum enzymes; Z86.73 Personal history of transient ischemic attack (TIA), and cerebral infarction without residual deficits; Z90.49 Acquired absence of other specified parts of digestive tract; Z79.4 Long term (current) use of insulin; Z90.710 Acquired absence of both cervix and uterus; Z85.828 Personal history of other malignant neoplasm of skin; I25.2 Old myocardial infarction
CPT/HCPCS: 70450; 71045; 80048; 81003; 82550; 82553; 82948; 83880; 84484; 84999; 85025; 85027; 85610; 85730; 87040; 87086; 93005; 93880; 94640; 94640 76; 97530 GO; 99202; 99281; 99285; J0696; J1644; J1650; J1815; J2930; J7030

== ENCOUNTER 2017-09-17 19:26 | Inpatient (IN) | payer OTHER ==
[~2017-09-17] VITALS: Ht 162.6 cm; Wt 92.1 kg
[~2017-09-17 19:26] MED LIST changes: +ATIVAN0.5 MG PO; +FERROUS SULFAT325 MG PO; +HUMALOG100 UNIT/2 SC; +LOPRESSOR25 MG PO; +TRELEGY ELLIPT1 EACH IH
[2017-09-17 20:20] LABS: HEMATOCRIT 32.9 % (36.0-46.0); HEMOGLOBIN 10.9 G/DL (11.9-15.5); MCH 32.8 PG (29.0-34.0); MCHC 33.1 G/DL (30.0-36.0); MCV 99.1 FL (83-99); PLATELET COUNT 137 K/uL (156-360); RBC DIS.WIDTH-CV 14.5 % (11.8-14.6); RBC DIS.WIDTH-SD 52.9 % (39-53); RED BLOOD COUNT 3.32 M/uL (3.80-5.20); WHITE BLOOD COUNT 6.3 K/uL (4.1-10.2)
[2017-09-17 20:29] LABS: CHLORIDE 107 mEq/L (99-109); POTASSIUM 4.4 mEq/L (3.7-5.4); SODIUM 142 mEq/L (136-147)
[2017-09-17 20:30] LABS: MAGNESIUM 1.9 mg/dL (1.3-2.7)
[2017-09-17 20:31] LABS: GLUCOSE 178 mg/dL (70-99)
[2017-09-17 20:35] LABS: CREATININE 1.6 mg/dL (0.6-1.3); GFR ESTIMATE (CALCULATED) 33 mL/min/; UREA NITROGEN (BUN) 21 mg/dL (9-23)
[2017-09-17 20:40] LABS: TROP-I INTERPRETATION NEGATIVE; TROPONIN-I 0.02 ng/mL (0.0-0.30)
[2017-09-17 21:21] LABS: APPEARANCE CLOUDY ((CLEAR)); BILIRUBIN NEGATIVE; BLOOD MODERATE; COLOR AMBER ((YELLOW)); GLUCOSE (STRIP) 50; KETONES NEGATIVE; LEUKOCYTES LARGE; NITRITE POSITIVE; PROTEIN (STRIP) 30; SPECIFIC GRAVITY 1.023 (1.000-1.030); UROBILINOGEN 0.2 MG/DL (0.2-1.0)
[2017-09-17 21:45] LABS: BACTERIA 3+ /HPF; EPITHELIAL CELLS 1+ /HPF; MUCUS NONE SEEN /LPF; UCUL ADDED? YES; WHITE BLOOD CELLS TNTC /HPF (0-5)
[2017-09-18] MEDS ORDERED: LANTUS 3 M100 UNITS1 SC ×2 (00:55→00:56)
[2017-09-18] MEDS ORDERED: IRON325 M1 PO (01:09)
[2017-09-18 05:05] VITALS: BP 158/62
[2017-09-18 07:18] LABS: TROP-I INTERPRETATION NEGATIVE; TROPONIN-I 0.03 ng/mL (0.0-0.30)
[2017-09-18 07:19] LABS: CREATINE KINASE 159 IU/L (1-294); TOTAL CK 159 IU/L (1-294)
[2017-09-18 07:49] LABS: THYROTROPIN (TSH) 0.54 MIU/L (0.4-5.5)
[2017-09-18 08:22] LABS: CK-MB 1.9 ng/mL (0.0-4.9); CKMB RELATIVE INDEX 1.2 (0.0-3.9)
[2017-09-18 08:44] LABS: HEMATOCRIT 31.9 % (36.0-46.0); HEMOGLOBIN 10.8 G/DL (11.9-15.5); MCH 33.5 PG (29.0-34.0); MCHC 33.9 G/DL (30.0-36.0); MCV 99.1 FL (83-99); PLATELET COUNT 128 K/uL (156-360); RBC DIS.WIDTH-CV 14.2 % (11.8-14.6); RBC DIS.WIDTH-SD 52.7 % (39-53); RED BLOOD COUNT 3.22 M/uL (3.80-5.20); WHITE BLOOD COUNT 6.1 K/uL (4.1-10.2)
[2017-09-18 09:04] LABS: CHLORIDE 108 MEQ/L (99-109); CREATININE 1.4 MG/DL (0.6-1.3); GFR ESTIMATE (CALCULATED) 39 mL/min/; GLUCOSE 178 mg/dL (70-99); SODIUM 141 MEQ/L (136-147); UREA NITROGEN (BUN) 18 mg/dL (9-23)
[2017-09-18 10:58] VITALS: BP 127/65; BP 188/88
[2017-09-18 10:59] VITALS: BP 136/71
[2017-09-18 16:24] VITALS: BP 144/65
[2017-09-18 16:27] VITALS: BP 111/58
[2017-09-18 19:58] VITALS: BP 123/68
[2017-09-19 00:36] VITALS: BP 113/53
[2017-09-19 05:10] VITALS: BP 121/60
[2017-09-19 05:46] LABS: BASOPHIL (%) 0.4 % (0-1); EOSINOPHIL (%) 1.9 % (0-5); EOSINOPHIL COUNT 0.1 K/uL (0-0.3); HEMATOCRIT 29.3 % (36.0-46.0); HEMOGLOBIN 9.4 G/DL (11.9-15.5); IMMATURE GRANULOCYTE (%) 1.3 % (0.0-0.7); LYMPHOCYTE (%) 10.3 % (15-42); LYMPHOCYTE COUNT 0.5 K/uL (1.0-2.8); MCH 32.5 PG (29.0-34.0); MCHC 32.1 G/DL (30.0-36.0); MCV 101.4 FL (83-99); MONOCYTE (%) 16.1 % (3-12); MONOCYTE COUNT 0.8 K/uL (0-0.8); NEUTROPHIL COUNT 3.3 K/uL (1.8-6.4); PLATELET COUNT 119 K/uL (156-360); RBC DIS.WIDTH-CV 14.6 % (11.8-14.6); RBC DIS.WIDTH-SD 54.5 % (39-53); RED BLOOD COUNT 2.89 M/uL (3.80-5.20); WHITE BLOOD COUNT 4.7 K/uL (4.1-10.2)
[2017-09-19 06:02] LABS: ALBUMIN 2.9 G/DL (3.2-4.8); ALKALINE PHOSPHATASE 60 IU/L (3-129); ALT (GPT) 14 IU/L (3-49); AST (GOT) 21 IU/L (2-34); CHLORIDE 107 MEQ/L (99-109); DIRECT BILIRUBIN 0.1 mg/dL (0.0-0.3); GLUCOSE 146 mg/dL (70-99); POTASSIUM 3.9 MEQ/L (3.7-5.4); SODIUM 139 MEQ/L (136-147); TOTAL PROTEIN 5.6 G/DL (6.4-8.3); UREA NITROGEN (BUN) 23 mg/dL (9-23)
[2017-09-19 06:03] LABS: CREATININE 2.1 MG/DL (0.6-1.3); GFR ESTIMATE (CALCULATED) 24 mL/min/; TOTAL BILIRUBIN 0.4 MG/DL (0.0-1.0)
[2017-09-19 08:00] VITALS: BP 117/57
[2017-09-19 11:23] VITALS: BP 109/55
[2017-09-19 15:47] VITALS: BP 129/60
[2017-09-19 19:32] VITALS: BP 123/58
[2017-09-20 00:03] VITALS: BP 153/70
[2017-09-20 04:11] VITALS: BP 112/55
[2017-09-20 05:17] LABS: BASOPHIL (%) 0.5 % (0-1); EOSINOPHIL COUNT 0.1 K/uL (0-0.3); HEMATOCRIT 29.2 % (36.0-46.0); HEMOGLOBIN 9.3 G/DL (11.9-15.5); IMMATURE GRANULOCYTE (%) 0.7 % (0.0-0.7); LYMPHOCYTE (%) 15.6 % (15-42); LYMPHOCYTE COUNT 0.6 K/uL (1.0-2.8); MCH 31.5 PG (29.0-34.0); MCHC 31.8 G/DL (30.0-36.0); MONOCYTE (%) 15.3 % (3-12); MONOCYTE COUNT 0.6 K/uL (0-0.8); NEUTROPHIL (%) 65.9 % (45-76); NEUTROPHIL COUNT 2.7 K/uL (1.8-6.4); PLATELET COUNT 130 K/uL (156-360); RBC DIS.WIDTH-CV 14.3 % (11.8-14.6); RBC DIS.WIDTH-SD 52.2 % (39-53); RED BLOOD COUNT 2.95 M/uL (3.80-5.20)
[2017-09-20 05:40] LABS: CHLORIDE 107 MEQ/L (99-109); CREATININE 1.7 MG/DL (0.6-1.3); GFR ESTIMATE (CALCULATED) 31 mL/min/; GLUCOSE 145 mg/dL (70-99); POTASSIUM 3.8 MEQ/L (3.7-5.4); SODIUM 136 MEQ/L (136-147); UREA NITROGEN (BUN) 23 mg/dL (9-23)
[2017-09-20 07:34] VITALS: BP 97/50
[2017-09-20 12:38] VITALS: BP 113/57
[2017-09-20 16:01] VITALS: BP 116/58
[2017-09-20 19:30] VITALS: BP 117/55
[2017-09-21 00:35] VITALS: BP 128/70
[2017-09-21 08:31] LABS: HEMATOCRIT 29.6 % (36.0-46.0); HEMOGLOBIN 9.6 G/DL (11.9-15.5); MCH 32.2 PG (29.0-34.0); MCHC 32.4 G/DL (30.0-36.0); MCV 99.3 FL (83-99); PLATELET COUNT 126 K/uL (156-360); RBC DIS.WIDTH-CV 14.2 % (11.8-14.6); RBC DIS.WIDTH-SD 51.6 % (39-53); RED BLOOD COUNT 2.98 M/uL (3.80-5.20); WHITE BLOOD COUNT 4.1 K/uL (4.1-10.2)
[2017-09-21 08:41] VITALS: BP 119/60
[2017-09-21 08:53] LABS: CHLORIDE 106 MEQ/L (99-109); CREATININE 1.9 MG/DL (0.6-1.3); GFR ESTIMATE (CALCULATED) 27 mL/min/; GLUCOSE 138 mg/dL (70-99); POTASSIUM 4.1 MEQ/L (3.7-5.4); SODIUM 137 MEQ/L (136-147); UREA NITROGEN (BUN) 25 mg/dL (9-23)
[2017-09-21] MEDS ORDERED: LOPRESSOR25 MG PO (11:05)
[2017-09-21] MEDS ORDERED: PERCOCET 7.51 TABLET PO (11:05)
[2017-09-21] MEDS ORDERED: LEVETIRACETAM250 MG PO (11:05)
[2017-09-21] MEDS ORDERED: OXYCODONE-APAP1 EAC6 PO (11:05)
== END 2017-09-21 15:25 | DRG 312 ==
LOC: EME → EDBD 19:26 → EME 19:26 → EDOF 09-18 02:40 → 4SOUTH 09-18 02:40 → EDOF 09-18 02:40 → ENRESERV 09-18 02:42 → 4SOUTH 09-18 04:39
PROVIDERS: Emergency Medicine; Hospitalist
DX: I95.1 Orthostatic hypotension (principal); I63.9 Cerebral infarction, unspecified; N17.9 Acute kidney failure, unspecified; N25.81 Secondary hyperparathyroidism of renal origin; E87.1 Hypo-osmolality and hyponatremia; J44.1 Chronic obstructive pulmonary disease with (acute) exacerbation; I67.82 Cerebral ischemia; G89.4 Chronic pain syndrome; G30.9 Alzheimer's disease, unspecified; F02.80 Dementia in other diseases classified elsewhere, unspecified severity, without behavioral disturbance, psychotic disturbance, mood disturbance, and anxiety; N18.3 Chronic kidney disease, stage 3 (moderate); R29.6 Repeated falls; D63.1 Anemia in chronic kidney disease; D69.6 Thrombocytopenia, unspecified; E03.9 Hypothyroidism, unspecified; E11.22 Type 2 diabetes mellitus with diabetic chronic kidney disease; E11.40 Type 2 diabetes mellitus with diabetic neuropathy, unspecified; E78.00 Pure hypercholesterolemia, unspecified; E78.5 Hyperlipidemia, unspecified; I13.10 Hypertensive heart and chronic kidney disease without heart failure, with stage 1 through stage 4 chronic kidney disease, or unspecified chronic kidney disease; I25.10 Atherosclerotic heart disease of native coronary artery without angina pectoris; I25.2 Old myocardial infarction; K21.9 Gastro-esophageal reflux disease without esophagitis; M25.78 Osteophyte, vertebrae; M50.222 Other cervical disc displacement at C5-C6 level; M81.0 Age-related osteoporosis without current pathological fracture; M96.1 Postlaminectomy syndrome, not elsewhere classified; R56.9 Unspecified convulsions; R00.0 Tachycardia, unspecified; M19.90 Unspecified osteoarthritis, unspecified site; R00.2 Palpitations; Z85.828 Personal history of other malignant neoplasm of skin; Z86.73 Personal history of transient ischemic attack (TIA), and cerebral infarction without residual deficits; Z90.49 Acquired absence of other specified parts of digestive tract; Z90.710 Acquired absence of both cervix and uterus; Z91.81 History of falling; Z98.1 Arthrodesis status; Z79.4 Long term (current) use of insulin; Z79.82 Long term (current) use of aspirin; Z82.49 Family history of ischemic heart disease and other diseases of the circulatory system
CPT/HCPCS: 70450; 70551; 71046; 71110; 72125; 72128; 72131; 78582; 80048; 80076; 81003; 82550; 82553; 82948; 83605; 83735; 83880; 84439; 84443; 84484; 85025; 85027; 87040; 87086; 93005; 94640; 94640 76; 95819; 99202; 99281; 99285; A9540; A9567; J0696; J1644; J1815; J7030

== ENCOUNTER 2017-10-18 13:19 | Inpatient (IN) | payer OTHER ==
[~2017-10-18] VITALS: Ht 162.6 cm; Wt 85.1 kg
[~2017-10-18 13:19] MED LIST changes: +LEVETIRACETAM250 MG PO
[2017-10-18 14:09] LABS: BASOPHIL (%) 0.2 % (0-1); EOSINOPHIL (%) 0.4 % (0-5); HEMATOCRIT 35.3 % (36.0-46.0); HEMOGLOBIN 11.6 G/DL (11.9-15.5); LYMPHOCYTE (%) 10.5 % (15-42); LYMPHOCYTE COUNT 0.9 K/uL (1.0-2.8); MCH 33.2 PG (29.0-34.0); MCHC 32.9 G/DL (30.0-36.0); MCV 101.1 FL (83-99); MONOCYTE (%) 12.6 % (3-12); MONOCYTE COUNT 1.1 K/uL (0-0.8); NEUTROPHIL (%) 75.3 % (45-76); NEUTROPHIL COUNT 6.8 K/uL (1.8-6.4); PLATELET COUNT 91 K/uL (156-360); RBC DIS.WIDTH-SD 51.7 % (39-53); RED BLOOD COUNT 3.49 M/uL (3.80-5.20)
[2017-10-18 14:16] LABS: ALBUMIN 3.3 g/dL (3.2-4.8); CHLORIDE 108 mEq/L (99-109); SODIUM 143 mEq/L (136-147)
[2017-10-18 14:19] LABS: GLUCOSE 114 mg/dL (70-99); TOTAL PROTEIN 6.1 g/dL (6.4-8.3)
[2017-10-18 14:21] LABS: TOTAL BILIRUBIN 0.8 mg/dL (0.0-1.0)
[2017-10-18 14:22] LABS: ALKALINE PHOSPHATASE 97 IU/L (3-129); PHOSPHORUS 3.3 mg/dL (2.5-4.9); SERUM ETHYL ALCOHOL < 10 mg/dL
[2017-10-18 14:23] LABS: CREATININE 1.7 mg/dL (0.6-1.3); GFR ESTIMATE (CALCULATED) 31 mL/min/
[2017-10-18 14:24] LABS: AST (GOT) 17 IU/L (2-34); UREA NITROGEN (BUN) 38 mg/dL (9-23)
[2017-10-18 14:26] LABS: ALT (GPT) 15 IU/L (3-49); CREATINE KINASE 27 IU/L (1-294)
[2017-10-18 14:28] LABS: TROP-I INTERPRETATION NEGATIVE; TROPONIN-I 0.02 ng/mL (0.0-0.30)
[2017-10-18 15:12] LABS: THYROTROPIN (TSH) 1.3 MIU/L (0.4-5.5)
[2017-10-18 17:00] LABS: APPEARANCE CLOUDY ((CLEAR)); BILIRUBIN NEGATIVE; BLOOD MODERATE; COLOR YELLOW ((YELLOW)); GLUCOSE (STRIP) NEGATIVE; KETONES NEGATIVE; LEUKOCYTES LARGE; NITRITE NEGATIVE; PROTEIN (STRIP) 30; SPECIFIC GRAVITY 1.018 (1.000-1.030); UROBILINOGEN 0.2 MG/DL (0.2-1.0)
[2017-10-18 17:25] LABS: BACTERIA 1+ /HPF; EPITHELIAL CELLS RARE /HPF; MUCUS NONE SEEN /LPF; RED BLOOD CELLS RARE /HPF (0-5); UCUL ADDED? YES; WHITE BLOOD CELLS 20-30 /HPF (0-5)
[2017-10-18 17:33] LABS: AMPHETAMINE NEGATIVE (500 ng/mL); BARBITURATES NEGATIVE (200 ng/mL); BENZODIAZEPINES NEGATIVE (150 ng/mL); COCAINE NEGATIVE (150 ng/mL); METHADONE NEGATIVE (200 ng/mL); METHAMPHETAMINE NEGATIVE (500 ng/mL); OPIATES (MORPHINE) NEGATIVE (100 ng/mL); PHENCYCLIDINE NEGATIVE (25 ng/mL); THC CANNABINOIDS NEGATIVE (50 ng/mL); TRICYCLIC ANTIDEPRESSANTS PRESUMPTIVE POSITIVE (300 ng/mL)
[2017-10-18 17:34] LABS: BUPRENORPHINE NEGATIVE (10 ng/mL); OXYCODONE PRESUMPTIVE POSITIVE (100 ng/mL); PROPOXYPHENE NEGATIVE (300 ng/mL)
[2017-10-18] MEDS ORDERED: HUMALOG100 UNIT/2 SC (18:44)
[2017-10-18] MEDS ORDERED: CENTRUM SILVER1 EAC4 PO (18:46)
[2017-10-18] MEDS ORDERED: LANTUS 10100 UNITS/ SC (18:47)
[2017-10-18] MEDS ORDERED: PERCOCET 7.51 TABLET PO ×2 (18:48)
[2017-10-18 19:29] VITALS: BP 125/81
[2017-10-18 23:52] VITALS: BP 93/55
[2017-10-18 23:58] VITALS: BP 96/58
[2017-10-19 04:11] VITALS: BP 100/50
[2017-10-19 05:41] LABS: BASOPHIL (%) 0.2 % (0-1); EOSINOPHIL (%) 0.1 % (0-5); HEMATOCRIT 33.6 % (36.0-46.0); HEMOGLOBIN 10.9 G/DL (11.9-15.5); IMMATURE GRANULOCYTE (%) 0.8 % (0.0-0.7); LYMPHOCYTE (%) 4.2 % (15-42); LYMPHOCYTE COUNT 0.4 K/uL (1.0-2.8); MCH 32.3 PG (29.0-34.0); MCHC 32.4 G/DL (30.0-36.0); MCV 99.7 FL (83-99); MONOCYTE (%) 10.7 % (3-12); NEUTROPHIL COUNT 8.2 K/uL (1.8-6.4); PLATELET COUNT 92 K/uL (156-360); RBC DIS.WIDTH-SD 51.6 % (39-53); RED BLOOD COUNT 3.37 M/uL (3.80-5.20); WHITE BLOOD COUNT 9.7 K/uL (4.1-10.2)
[2017-10-19 06:53] LABS: ALKALINE PHOSPHATASE 76 IU/L (3-129); ALT (GPT) 15 IU/L (3-49); AST (GOT) 30 IU/L (2-34); CHLORIDE 107 MEQ/L (99-109); CREATININE 1.8 MG/DL (0.6-1.3); DIRECT BILIRUBIN 0.2 mg/dL (0.0-0.3); GFR ESTIMATE (CALCULATED) 29 mL/min/; GLUCOSE 98 mg/dL (70-99); POTASSIUM 4.4 MEQ/L (3.7-5.4); SODIUM 140 MEQ/L (136-147); TOTAL BILIRUBIN 0.5 MG/DL (0.0-1.0); UREA NITROGEN (BUN) 35 mg/dL (9-23)
[2017-10-19 11:09] VITALS: BP 95/50
[2017-10-19 15:30] VITALS: BP 96/53
[2017-10-19 20:01] VITALS: BP 116/58
[2017-10-20 01:11] VITALS: BP 144/65
[2017-10-20 04:20] VITALS: BP 135/75
[2017-10-20 05:28] LABS: BASOPHIL (%) 0.2 % (0-1); EOSINOPHIL (%) 1.7 % (0-5); EOSINOPHIL COUNT 0.1 K/uL (0-0.3); HEMATOCRIT 31.5 % (36.0-46.0); HEMOGLOBIN 10.2 G/DL (11.9-15.5); IMMATURE GRANULOCYTE (%) 0.5 % (0.0-0.7); LYMPHOCYTE (%) 10.9 % (15-42); LYMPHOCYTE COUNT 0.6 K/uL (1.0-2.8); MCH 32.3 PG (29.0-34.0); MCHC 32.4 G/DL (30.0-36.0); MCV 99.7 FL (83-99); MONOCYTE (%) 14.3 % (3-12); MONOCYTE COUNT 0.8 K/uL (0-0.8); NEUTROPHIL (%) 72.4 % (45-76); NEUTROPHIL COUNT 4.2 K/uL (1.8-6.4); PLATELET COUNT 81 K/uL (156-360); RBC DIS.WIDTH-CV 13.7 % (11.8-14.6); RBC DIS.WIDTH-SD 51.1 % (39-53); RED BLOOD COUNT 3.16 M/uL (3.80-5.20); WHITE BLOOD COUNT 5.8 K/uL (4.1-10.2)
[2017-10-20 06:48] LABS: ALBUMIN 2.7 G/DL (3.2-4.8); ALKALINE PHOSPHATASE 63 IU/L (3-129); ALT (GPT) 20 IU/L (3-49); AST (GOT) 27 IU/L (2-34); CHLORIDE 108 MEQ/L (99-109); CREATININE 1.7 MG/DL (0.6-1.3); GFR ESTIMATE (CALCULATED) 31 mL/min/; POTASSIUM 3.6 MEQ/L (3.7-5.4); SODIUM 141 MEQ/L (136-147); UREA NITROGEN (BUN) 36 mg/dL (9-23)
[2017-10-20 06:53] LABS: GLUCOSE 61 mg/dL (70-99); TOTAL BILIRUBIN 0.3 MG/DL (0.0-1.0)
[2017-10-20 07:23] VITALS: BP 92/50
[2017-10-20 11:45] VITALS: BP 110/52
[2017-10-20 16:00] VITALS: BP 110/56
[2017-10-20 21:17] VITALS: BP 128/64
[2017-10-21] VITALS (7 sets, daily range): BP systolic 120–180; BP diastolic 59–92
[2017-10-22 00:37] VITALS: BP 144/69
[2017-10-22 04:54] VITALS: BP 145/99
[2017-10-22 07:50] VITALS: BP 135/77
[2017-10-22] MEDS ORDERED: GABAPENTIN100 MG PO (10:59)
[2017-10-22] MEDS ORDERED: LAMICTAL25 MG PO (10:59)
[2017-10-22 13:38] VITALS: BP 131/85
[2017-10-22 16:30] VITALS: BP 145/78
[2017-10-22 19:57] VITALS: BP 144/73
[2017-10-23 00:37] VITALS: BP 160/80
[2017-10-23 09:00] VITALS: BP 106/51
[2017-10-23 11:46] VITALS: BP 102/64
[2017-10-23] MEDS ORDERED: INVANZ1 GM IV (11:47)
== END 2017-10-23 16:20 | DRG 689 ==
LOC: EME 13:19 → EDOF 17:52 → 4SOUTH 17:52 → ENRESERV 17:52 → EDOF 17:52 → ENRESERV 18:18 → 4SOUTH 19:22
PROVIDERS: Emergency Medicine; Hospitalist; Physician Assistant Medical
DX: N39.0 Urinary tract infection, site not specified (principal); N17.9 Acute kidney failure, unspecified; G93.41 Metabolic encephalopathy; J44.1 Chronic obstructive pulmonary disease with (acute) exacerbation; I95.9 Hypotension, unspecified; E11.649 Type 2 diabetes mellitus with hypoglycemia without coma; I12.9 Hypertensive chronic kidney disease with stage 1 through stage 4 chronic kidney disease, or unspecified chronic kidney disease; E11.22 Type 2 diabetes mellitus with diabetic chronic kidney disease; N18.3 Chronic kidney disease, stage 3 (moderate); D69.6 Thrombocytopenia, unspecified; K21.9 Gastro-esophageal reflux disease without esophagitis; F32.9 Major depressive disorder, single episode, unspecified; G47.30 Sleep apnea, unspecified; E78.5 Hyperlipidemia, unspecified; E66.01 Morbid (severe) obesity due to excess calories; I25.10 Atherosclerotic heart disease of native coronary artery without angina pectoris; R00.0 Tachycardia, unspecified; E03.9 Hypothyroidism, unspecified; G40.909 Epilepsy, unspecified, not intractable, without status epilepticus; E11.42 Type 2 diabetes mellitus with diabetic polyneuropathy; B96.20 Unspecified Escherichia coli [E. coli] as the cause of diseases classified elsewhere; Z16.12 Extended spectrum beta lactamase (ESBL) resistance; G89.29 Other chronic pain; Z85.828 Personal history of other malignant neoplasm of skin; I25.2 Old myocardial infarction; Z79.4 Long term (current) use of insulin; Z79.82 Long term (current) use of aspirin; Z79.02 Long term (current) use of antithrombotics/antiplatelets; Z91.81 History of falling; Z68.32 Body mass index [BMI] 32.0-32.9, adult; Z79.891 Long term (current) use of opiate analgesic
CPT/HCPCS: 70450; 71046; 71250; 80048; 80053; 80076; 81003; 82550; 82948; 83735; 84100; 84439; 84443; 84484; 85025; 87077; 87086; 87186; 87641; 93005; 94640 76; 94760; 99202; 99281; 99285; A6214; G0378; G0480; J0290; J0696; J1335; J1644; J1815; J7030; J7050; J7120

== ENCOUNTER 2017-11-09 12:07 | Observation (INO) | payer OTHER ==
[~2017-11-09] VITALS: Ht 162.6 cm; Wt 90.4 kg
[~2017-11-09 12:07] MED LIST changes: +BASAGLAR K100 UNIT/1 SC; +CENTRUM SILVER1 EAC4 PO; +GABAPENTIN100 MG PO; +INVANZ1 GM IV; +LAMICTAL25 MG PO
[2017-11-09 12:46] LABS: BASOPHIL (%) 0.4 % (0-1); EOSINOPHIL (%) 0 % (0-5); HEMATOCRIT 32.8 % (36.0-46.0); HEMOGLOBIN 11.1 G/DL (11.9-15.5); IMMATURE GRANULOCYTE (%) 1.4 % (0.0-0.7); LYMPHOCYTE (%) 19.2 % (15-42); MCH 32.9 PG (29.0-34.0); MCHC 33.8 G/DL (30.0-36.0); MCV 97.3 FL (83-99); MONOCYTE (%) 12.4 % (3-12); MONOCYTE COUNT 0.6 K/uL (0-0.8); NEUTROPHIL (%) 66.6 % (45-76); NEUTROPHIL COUNT 3.3 K/uL (1.8-6.4); PLATELET COUNT 105 K/uL (156-360); RBC DIS.WIDTH-CV 12.7 % (11.8-14.6); RBC DIS.WIDTH-SD 44.9 % (39-53); RED BLOOD COUNT 3.37 M/uL (3.80-5.20)
[2017-11-09 12:58] LABS: CHLORIDE 109 mEq/L (99-109); SODIUM 142 mEq/L (136-147)
[2017-11-09 13:00] LABS: GLUCOSE 111 mg/dL (70-99)
[2017-11-09 13:04] LABS: CREATININE 1.4 mg/dL (0.6-1.3); GFR ESTIMATE (CALCULATED) 39 mL/min/
[2017-11-09 13:05] LABS: UREA NITROGEN (BUN) 22 mg/dL (9-23)
[2017-11-09 13:08] LABS: TROP-I INTERPRETATION NEGATIVE; TROPONIN-I 0.02 ng/mL (0.0-0.30)
[2017-11-09] MEDS ORDERED: LOPRESSOR25 MG PO (15:20)
[2017-11-09 16:24] VITALS: BP 151/66
[2017-11-10 01:38] VITALS: BP 164/74
[2017-11-10 04:21] VITALS: BP 113/58
[2017-11-10 05:41] LABS: BASOPHIL (%) 0.7 % (0-1); EOSINOPHIL (%) 0 % (0-5); HEMATOCRIT 34.9 % (36.0-46.0); HEMOGLOBIN 10.7 G/DL (11.9-15.5); IMMATURE GRANULOCYTE (%) 1.4 % (0.0-0.7); LYMPHOCYTE (%) 33.6 % (15-42); LYMPHOCYTE COUNT 1.5 K/uL (1.0-2.8); MCH 31.7 PG (29.0-34.0); MCHC 30.7 G/DL (30.0-36.0); MONOCYTE (%) 15.9 % (3-12); MONOCYTE COUNT 0.7 K/uL (0-0.8); NEUTROPHIL (%) 48.4 % (45-76); NEUTROPHIL COUNT 2.1 K/uL (1.8-6.4); PLATELET COUNT 100 K/uL (156-360); RBC DIS.WIDTH-CV 12.8 % (11.8-14.6); RBC DIS.WIDTH-SD 47.8 % (39-53); RED BLOOD COUNT 3.38 M/uL (3.80-5.20); WHITE BLOOD COUNT 4.4 K/uL (4.1-10.2)
[2017-11-10 05:45] LABS: MCV 103.3 FL (83-99)
[2017-11-10 06:11] LABS: ALBUMIN 2.9 G/DL (3.2-4.8); ALKALINE PHOSPHATASE 68 IU/L (3-129); ALT (GPT) 10 IU/L (3-49); AST (GOT) 19 IU/L (2-34); CHLORIDE 109 MEQ/L (99-109); CREATININE 1.5 MG/DL (0.6-1.3); DIRECT BILIRUBIN 0.1 mg/dL (0.0-0.3); GFR ESTIMATE (CALCULATED) 36 mL/min/; GLUCOSE 84 mg/dL (70-99); SODIUM 141 MEQ/L (136-147); TOTAL BILIRUBIN 0.3 MG/DL (0.0-1.0); TOTAL PROTEIN 5.6 G/DL (6.4-8.3); UREA NITROGEN (BUN) 22 mg/dL (9-23)
[2017-11-10 07:50] VITALS: BP 136/63
[2017-11-10 09:24] LABS: HEMOGLOBIN A1c (GLYCOHEMOGLOB) 6.4 % (Below 5.7)
[2017-11-10] MEDS ORDERED: LAMICTAL25 MG PO (10:57)
[2017-11-10 11:24] VITALS: BP 147/67
[2017-11-10 15:15] VITALS: BP 154/69
== END 2017-11-10 16:28 | disposition home or self-care (01) ==
LOC: EME 12:07 → EDOF 14:29 → 4SOUTH 14:29 → EDOF 14:29 → ENRESERV 14:33 → 4SOUTH 16:04
PROVIDERS: Emergency Medicine; Hospitalist
DX: I95.1 Orthostatic hypotension (principal); D69.6 Thrombocytopenia, unspecified; I12.9 Hypertensive chronic kidney disease with stage 1 through stage 4 chronic kidney disease, or unspecified chronic kidney disease; E11.22 Type 2 diabetes mellitus with diabetic chronic kidney disease; N18.3 Chronic kidney disease, stage 3 (moderate); J44.1 Chronic obstructive pulmonary disease with (acute) exacerbation; R29.6 Repeated falls; H53.8 Other visual disturbances; I25.10 Atherosclerotic heart disease of native coronary artery without angina pectoris; E03.9 Hypothyroidism, unspecified; G40.909 Epilepsy, unspecified, not intractable, without status epilepticus; E11.42 Type 2 diabetes mellitus with diabetic polyneuropathy; Z87.440 Personal history of urinary (tract) infections; Z85.828 Personal history of other malignant neoplasm of skin; G47.33 Obstructive sleep apnea (adult) (pediatric); Z86.73 Personal history of transient ischemic attack (TIA), and cerebral infarction without residual deficits; Z86.19 Personal history of other infectious and parasitic diseases; Z90.49 Acquired absence of other specified parts of digestive tract; Z90.710 Acquired absence of both cervix and uterus; Z82.49 Family history of ischemic heart disease and other diseases of the circulatory system; Z80.1 Family history of malignant neoplasm of trachea, bronchus and lung; Z79.4 Long term (current) use of insulin; D64.9 Anemia, unspecified
CPT/HCPCS: 70450; 71045; 80048; 80076; 82948; 83036; 84484; 85025; 93005; 94799; 99281; 99285; G0378; G8978 GP CJ; G8979 GP CI; G8980 CJ; G8987 GO CJ; G8988 CI; G8989 CJ; J1815; J7030